=== PATIENT | male | born 1960 | race African-American/Black ===

== ENCOUNTER 2018-11-26 21:42 | Emergency (ER) | payer OTHER ==
[~2018-11-26] VITALS: Ht 193 cm; Wt 104.3 kg
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
--- NOTE | 2018-11-26 22:00 | NUR ---
ED Nurse Note: Pt went to CT scan.
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
[2018-11-26 22:19] LABS: ANION GAP 14 mmol/L (5-15); BLOOD UREA NITROGEN 16 mg/dL (7-18); CALCIUM 10.4 MG/DL (8.5-10.1); CARBON DIOXIDE 26 MMOL/L (21-32); CHLORIDE 104 MMOL/L (98-107); CREATININE 1.5 MG/DL (0.55-1.30); POTASSIUM 4.2 MMOL/L (3.5-5.1); SODIUM 144 MMOL/L (136-145)
[2018-11-26 22:20] LABS: BASOPHILS % (AUTO) 0.7 % (0.0-2.0); EOSINOPHILS % (AUTO) 0.3 % (0.0-3.0); HEMATOCRIT 43.6 % (42.0-52.0); HEMOGLOBIN 13.7 G/DL (14.2-18.0); LYMPHOCYTES % (AUTO) 15.8 % (20.0-45.0); MEAN CORPUSCULAR VOLUME 91 FL (80-99); NEUTROPHILS % (AUTO) 78.2 % (45.0-75.0); PLATELET COUNT 172 K/UL (150-450); RED BLOOD COUNT 4.79 M/UL (4.70-6.10); WHITE BLOOD COUNT 8.1 K/UL (4.8-10.8)
--- NOTE | 2018-11-26 22:32 | NUR ---
ED Nurse Note: Blood sample sent to lab.
--- NOTE | 2018-11-26 22:32 | NUR ---
ED Nurse Note: Urine sample sent to lab.
[2018-11-26 22:37] VITALS: BP 125/85
[2018-11-27 00:03] VITALS: BP 150/78
--- NOTE | 2018-11-27 00:03 | NUR ---
ER DISCHARGE NOTE: Patient is cleared to be discharged per ERMD, pt is aox4, on room air, with stable vital signs. pt was given dc and prescription instructions, pt was able to verbalize understanding, pt id band and iv site removed without complications. pt is able to ambulate with steady gait. pt took all belongings.
[2018-11-27 00:04] VITALS: BP 150/78
--- NOTE | 2018-11-27 15:14 | Cardiology Report ---
APPROVED REPORT EKG Measurement Heart [id number] Sinus rhythm with 1st degree AV block Right bundle branch block Left anterior fascicular block Bifascicular block Minimal voltage criteria for LVH, may be normal variant Abnormal ECG
== END 2018-11-27 00:05 | disposition home or self-care (01) ==
LOC: EDBD 21:42 → EMR 22:15
DX: R55 Syncope and collapse (principal); F19.10 Other psychoactive substance abuse, uncomplicated
CPT/HCPCS: 36415; 70450; 80048; 80307; 80329; 84484; 85025; 93005; 96360; 99284